=== PATIENT | female | born 1955 | race Caucasian/White ===

== ENCOUNTER 2019-02-18 18:23 | Inpatient (IN) ==
--- NOTE | 2019-02-18 18:55 | Emergency Department Note ---
Disposition Clinical Impression: Hypokalemia, Chronic vomiting, Dehydration Disposition: Admitted As Inpatient Condition: Fair Time of Disposition: 22:11 Nausea/Vomiting/Diarrhea HPI - General Chief complaint: ED Nausea/Vomiting/Diarrhea Stated complaint: vomiting,diarrhea, dehydration Time Seen by Provider: 02/18/19 18:54 Source: patient Limitations: no limitations Nursing Notes Reviewed: Yes Vital Signs Reviewed: Yes - History of Present Illness HPI Narrative: Mrs. Love is a 63yo female with a history of CAD, hypertension, Aortic Stenosis, DM and C. Diff with confirmed resolution presenting with 5.5 months of intractable vomiting with a 80lb weight loss. Patient's daughter at bedside states that the patient is in need of a aortic valve repair along with CABG but is unable to do so because of the intractable n/v. Patient has seen [facility] and has planned follow-up including MRI, and consultation with [facility] pancreatic specialist in the next few weeks but is here today in hopes of expediting the w ork-up process. Patient has been placed on pancreatic enzyme supplements and various other meds without relief. Patient reports no abdominal pain but does relay some diarrhea without blood. Patient unable to keep anything down other than sips of liquids. Patient said been having constant nausea with vomiting. She has multiple episodes daily. She feels generalized weakness and fatigue. Patient is a, take by her daughter at this time, he states that overall she seemed significantly weak, difficult for her to get out of bed secondary to this. - Related Data Home Medications Medication Instructions Recorded Confirmed Carvedilol [Coreg] 3.125 mg PO BIDWM 09/27/18 10/29/18 Lactobacillus Combination No.8 1 cap ADDUCT DAILY 10/18/18 10/29/18 [Adult Probiotic] Omeprazole [PriLOSEC] 20 mg PO DAILY 02/18/19 02/18/19 RX: Promethazine HCl 50 mg PO BID PRN 02/18/19 02/18/19 Camilo Vásquez 5,000 Unit Capsule 15,000 units PO 02/18/19 Allergies Allergy/AdvReac Type Severity Reaction Status Date / Time alcohol AdvReac See Verified 02/18/19 20:44 Comments aspirin AdvReac See Verified 02/18/19 20:44 Comments caffeine AdvReac See Verified 02/18/19 20:44 Comments nicotine AdvReac See Verified 02/18/19 20:44 Comments All systems ED: reviewed and negative except as stated. Review of Systems: As Per HPI Constitutional: Denies: fever, chills Cardiovascular: Denies: chest pain, palpitations Respiratory: Denies: cough, dyspnea Gastrointestinal: Reports: nausea, vomiting, diarrhea. Denies: abdominal pain Genitourinary: Denies: urgency, dysuria Neurological: Reports: weakness. Denies: headache, numbness Endocrine: Reports: fatigue Past Medical History - Past Medical History Medical history: Reports: CHF, diabetes, hyperlipidemia, hypertension, valvular heart disease Surgical history: Reports: no surgical history Psychiatric history: Reports: no psych history - Social History Smoking Status: Never smoker Smokeless Tobacco Status: No Alcohol use: Reports: none Drug use: Reports: none Physical Exam - General Limitations: no limitations General appearance: alert, in no apparent distress - Head Head exam: atraumatic, normocephalic - Eye Eye exam: Present: PERRL, EOMI. Absent: scleral icterus - ENT ENT exam: mucous membranes dry - Neck Neck exam: Present: normal inspection - Chest Chest inspection: Present: symmetric chest wall rise - Respiratory Respiratory exam: Present: normal lung sounds bilaterally - Cardiovascular Cardiovascular exam: Present: regular rate, normal rhythm, systolic murmur - Abdominal Exam Abdominal exam: Present: soft, Non-Tender. Absent: distention, guarding, rebound - Extremities Exam Extremities exam: Present: normal inspection, normal capillary refill - Expanded Lower Extremity Exam Neurovascular/Tendon exam: Absent: motor deficit, sensory deficit, tendon deficit - Neurological Exam Neurological exam: Present: alert, oriented X3 - Psychiatric Psychiatric exam: Present: normal affect, normal mood - Skin Skin exam: Present: warm, dry, intact, pallor. Absent: diaphoresis Course Vital Signs Temperature 97.6 F 02/18/19 18:28 Pulse Rate 105 02/18/19 18:28 Respiratory Rate 18 02/18/19 18:28 Blood Pressure 114/66 02/18/19 18:28 O2 Sat by Pulse Oximetry 98 02/18/19 18:28 Temperature 97.6 F 02/18/19 18:28 Pulse Rate 90 02/18/19 20:53 Respiratory Rate 16 02/18/19 21:54 Blood Pressure 100/53 02/18/19 21:54 O2 Sat by Pulse Oximetry 98 02/18/19 20:53 Oxygen Delivery Oxygen Delivery Room Air Nausea/Vomiting/Diarrhea - [facility] Narrative Medical decision making narrative: Patient is a 63-year-old female with nausea, vomiting and diarrhea. Patient with known history of CAD, followed by Dr. Pires and August for concern and requiring aortic valve replacement as well as CABG, however patient has had intractable vomiting since this time with a total of 80 pound weight loss. She is also complaining of significant fatigue and weakness. Patient is normotensive, regular rate and rhythm. EKG shows scattered baseline but no QT prolongation at this time. Patient has been using Zofran at home without relief. On arrival, patient was given Zofran with out significant relief, therefore gave Phenergan and has had no vomiting episodes here in the ER. Laboratory work shows no leukocytosis, hemoglobin is stable, patient is hypokalemic and this will be replaced with IV potassium. Patient was given a liter of fluids while here in the ER. Patient's lipase is slightly elevated however has been more elevated in the past. We will hold off on further abdominal injury imaging as patient has no abdominal tenderness on my examination. Patient has severely elevated T bili however has no jaundice on my examination, feel this is most likely secondary to chronic etiology, does not appear acute. Patient will need to be admitted for dehydration, intractable vomiting and acute kidney injury as she does have elevated serum creatinine. Patient agrees with admission at this point in time. - Medical Records Medical records reviewed: Yes I reviewed the patient's medical records. - Lab Data Lab results reviewed: Yes I reviewed the patient's lab results. Result diagrams: 02/18/19 19:30 02/18/19 19:30 Lab Results 02/18/19 02/18/19 02/18/19 Range/Units 19:30 19:30 19:54 WBC 7.6 (4.3-11.1) K/mcL RBC 4.57 (3.82-4.97) M/mcL Hgb 14.3 D (11.5-15.4) g/dL Hct 41.6 (35.3-44.9) % MCV 91.0 (83.0-100.0) fL MCH 31.3 (28.0-33.3) pg MCHC 34.4 (31.6-35.5) g/dL RDW 13.4 (11.5-14.5) % Plt Count 189 (140-400) K/mcL MPV 11.1 (9.4-12.4) fL Immature Gran % 0.4 (0-4) % Seg Neutrophils % 76.1 % Lymphocytes % 11.5 % Monocytes % 8.0 % Eosinophils % 3.6 % Basophils % 0.4 % Neutrophils # 5.8 (1.6-8.9) K/mcL Lymphocytes # 0.9 (0.6-4.6) K/mcL Monocytes # 0.6 (0.0-1.3) K/mcL Eosinophils # 0.3 (0.0-0.6) K/mcL Basophils # 0.0 (0.0-0.2) K/mcL Sodium 133 L (136-145) mEq/L Potassium 2.4 L* (3.5-5.1) mEq/L Chloride 84 L (98-107) mEq/L Carbon Dioxide 35 H (23-29) mEq/L BUN 31 H (8-23) mg/dL Creatinine 1.76 H (0.60-1.20) mg/dL Est GFR ( Amer) 35 L (> 60) Est GFR (Non-Af Amer) 29 L (> 60) BUN/Creatinine Ratio 18 (6-26) Glucose 196 H (70-105) mg/dL Calculated Osmolality 288 (280-300) Lactic Acid (0.5-2.2) mmol/L Calcium 9.9 (8.6-10.3) mg/dL Magnesium 2.4 (1.6-2.6) mg/dL Total Bilirubin 2.2 H (0.3-1.0) mg/dL Direct Bilirubin 0.8 H (0.0-0.2) mg/dL Indirect Bilirubin 1.4 H (0.0-1.2) mg/dL AST 38 (13-39) Units/L ALT 17 (7-52) Units/L Alkaline Phosphatase 101 (34-104) Units/L Serum Total Protein 7.8 (6.4-8.9) g/dL Albumin 3.8 (3.5-5.7) g/dL Globulin 4.0 H (2.4-3.5) g/dL Albumin/Globulin Ratio 1.0 L (1.1-2.2) Lipase 96 H (11-82) Units/L Urine Color Dark Yellow (Yellow) Urine Clarity Cloudy A (Clear) Urine pH 5.5 (5.0-8.0) pH Units Ur Specific [place] 1.023 (1.010-1.025) Urine Protein 30 H (Neg-Trace) mg/dL Urine Glucose (UA) Normal (Normal) mg/dL Urine Ketones Negative (Negative) mg/dL Urine Blood Negative (Negative) Urine Nitrite Negative (Negative) Urine Bilirubin Small H (Negative) Urine Urobilinogen Normal (Normal) mg/dL Ur Leukocyte Esterase Small H (Negative) Urine Microscopic RBC 5-15 H (0-3) per hpf Urine Microscopic WBC 15-30 H (0-3) per hpf Ur Squamous Epith Cells Many H (None-Few) per lpf Urine Bacteria Moderate H (None-Few) per hpf Hyaline Casts Many H (None-Few) per lpf 02/18/19 Range/Units 20:15 WBC (4.3-11.1) K/mcL RBC (3.82-4.97) M/mcL Hgb (11.5-15.4) g/dL Hct (35.3-44.9) % MCV (83.0-100.0) fL MCH (28.0-33.3) pg MCHC (31.6-35.5) g/dL RDW (11.5-14.5) % Plt Count (140-400) K/mcL MPV (9.4-12.4) fL Immature Gran % (0-4) % Seg Neutrophils % % Lymphocytes % % Monocytes % % Eosinophils % % Basophils % % Neutrophils # (1.6-8.9) K/mcL Lymphocytes # (0.6-4.6) K/mcL Monocytes # (0.0-1.3) K/mcL Eosinophils # (0.0-0.6) K/mcL Basophils # (0.0-0.2) K/mcL Sodium (136-145) mEq/L Potassium (3.5-5.1) mEq/L Chloride (98-107) mEq/L Carbon Dioxide (23-29) mEq/L BUN (8-23) mg/dL Creatinine (0.60-1.20) mg/dL Est GFR ( Amer) (> 60) Est GFR (Non-Af Amer) (> 60) BUN/Creatinine Ratio (6-26) Glucose (70-105) mg/dL Calculated Osmolality (280-300) Lactic Acid 2.0 (0.5-2.2) mmol/L Calcium (8.6-10.3) mg/dL Magnesium (1.6-2.6) mg/dL Total Bilirubin (0.3-1.0) mg/dL Direct Bilirubin (0.0-0.2) mg/dL Indirect Bilirubin (0.0-1.2) mg/dL AST (13-39) Units/L ALT (7-52) Units/L Alkaline Phosphatase (34-104) Units/L Serum Total Protein (6.4-8.9) g/dL Albumin (3.5-5.7) g/dL Globulin (2.4-3.5) g/dL Albumin/Globulin Ratio (1.1-2.2) Lipase (11-82) Units/L Urine Color (Yellow) Urine Clarity (Clear) Urine pH (5.0-8.0) pH Units Ur Specific [place] (1.010-1.025) Urine Protein (Neg-Trace) mg/dL Urine Glucose (UA) (Normal) mg/dL Urine Ketones (Negative) mg/dL Urine Blood (Negative) Urine Nitrite (Negative) Urine Bilirubin (Negative) Urine Urobilinogen (Normal) mg/dL Ur Leukocyte Esterase (Negative) Urine Microscopic RBC (0-3) per hpf Urine Microscopic WBC (0-3) per hpf Ur Squamous Epith Cells (None-Few) per lpf Urine Bacteria (None-Few) per hpf Hyaline Casts (None-Few) per lpf - EKG Data EKG attestation: Yes I reviewed and interpreted this EKG. EKG results narrative: EKG performed at 1938 with ventricular rate of 94, regular rhythm, no axis, no ST segment elevation, depression, patient does have scattered baseline
[2019-02-18] MEDS ORDERED: Ondansetron 4 MG/2 ML VIAL IVP ONE (19:16)
[2019-02-18] MEDS ORDERED: 0.9 % Sodium Chloride 1,000 ML IVC ONE (19:32)
[2019-02-18 19:43] LABS: Basophils % 0.4 %; Eosinophils # 0.3 K/mcL (0.0-0.6); Eosinophils % 3.6 %; Hematocrit 41.6 % (35.3-44.9); Hemoglobin 14.3 g/dL (11.5-15.4); Immature Granulocytes % 0.4 % (0-4); Lymphocytes # 0.9 K/mcL (0.6-4.6); Lymphocytes % 11.5 %; Mean Corpuscular HGB Conc 34.4 g/dL (31.6-35.5); Mean Corpuscular Hemoglobin 31.3 pg (28.0-33.3); Mean Platelet Volume 11.1 fL (9.4-12.4); Monocytes # 0.6 K/mcL (0.0-1.3); Neutrophils # 5.8 K/mcL (1.6-8.9); Platelet Count 189 K/mcL (140-400); Red Blood Count 4.57 M/mcL (3.82-4.97); Red Cell Distribution Width 13.4 % (11.5-14.5); Segmented Neutrophils % 76.1 %; White Blood Count 7.6 K/mcL (4.3-11.1)
[2019-02-18 20:07] LABS: Albumin 3.8 g/dL (3.5-5.7); Bilirubin,Direct 0.8 mg/dL (0.0-0.2); Bilirubin,Indirect 1.4 mg/dL (0.0-1.2); Bilirubin,Total 2.2 mg/dL (0.3-1.0); Calcium 9.9 mg/dL (8.6-10.3); Potassium 2.4 mEq/L (3.5-5.1); Total Protein 7.8 g/dL (6.4-8.9)
[2019-02-18 20:08] LABS: Bilirubin,Urine Small (Negative); Blood,Urine Negative (Negative); Clarity,Urine Cloudy (Clear); Color,Urine Dark Yellow (Yellow); Glucose,Urine (UA) Normal (Normal); Ketones,Urine Negative (Negative); Leukocyte Esterase,Urine Small (Negative); Nitrite,Urine Negative (Negative); PH,Urine 5.5 pH Units (5.0-8.0); Protein,Urine 30 mg/dL (Neg-Trace); Specific Gravity,Urine 1.023 (1.010-1.025); Urobilinogen,Urine Normal (Normal)
[2019-02-18] MEDS ORDERED: Potassium Phosphate 44 MEQ in 0.9 % Sodium Chloride 250 ML IVPB ONE (20:15)
[2019-02-18 20:16] LABS: Squamous Epithelial Cell,Urine Many per lpf (None-Few); WBC,Urine 15-30 per hpf (0-3)
[2019-02-18] MEDS ORDERED: *HR* Promethazine 25 MG/ML VIAL IVP ONE (20:17)
--- NOTE | 2019-02-18 20:21 | Emergency Department Note ---
Disposition Clinical Impression: Dehydration, Hypokalemia, Chronic vomiting Disposition: Admitted As Inpatient Referrals: Pato Maher MD [Primary Care Provider] - Forms: ED Satisfaction Letter Time of Disposition: 20:21 General Adult HPI - General Chief complaint: ED Nausea/Vomiting/Diarrhea Stated complaint: vomiting,diarrhea, dehydration Time Seen by Provider: 02/18/19 18:54 Source: patient Limitations: no limitations - History of Present Illness Pain Scale: 0 - Related Data Home Medications Medication Instructions Recorded Confirmed Atorvastatin [Lipitor] 40 mg PO HS 08/31/18 10/29/18 Furosemide [Lasix] 20 mg PO DAILY 08/31/18 10/29/18 Carvedilol [Coreg] 3.125 mg PO BIDWM 09/27/18 10/29/18 Lactobacillus Combination No.8 1 cap ADDUCT DAILY 10/18/18 10/29/18 [Adult Probiotic] Melatonin 5 mg PO HS 10/18/18 10/29/18 Allergies Allergy/AdvReac Type Severity Reaction Status Date / Time alcohol AdvReac See Verified 02/18/19 18:32 Comments aspirin AdvReac See Verified 02/18/19 18:32 Comments caffeine AdvReac See Verified 02/18/19 18:32 Comments nicotine AdvReac See Verified 02/18/19 18:32 Comments Constitutional: Denies: fever, chills Cardiovascular: Denies: chest pain, palpitations Respiratory: Denies: cough, dyspnea Gastrointestinal: Reports: nausea, vomiting, diarrhea. Denies: abdominal pain Genitourinary: Denies: urgency, dysuria Neurological: Reports: weakness. Denies: headache, numbness Past Medical History - Past Medical History Medical history: Reports: CHF, diabetes, hyperlipidemia, hypertension, valvular heart disease Surgical history: Reports: no surgical history Psychiatric history: Reports: no psych history - Social History Smoking Status: Never smoker Smokeless Tobacco Status: No Alcohol use: Reports: none Drug use: Reports: none Physical Exam - General Limitations: no limitations General appearance: alert, in no apparent distress Course Vital Signs Temperature 97.6 F 02/18/19 18:28 Pulse Rate 105 02/18/19 18:28 Respiratory Rate 18 02/18/19 18:28 Blood Pressure 114/66 02/18/19 18:28 O2 Sat by Pulse Oximetry 98 02/18/19 18:28 Temperature 97.6 F 02/18/19 18:28 Pulse Rate 105 02/18/19 18:28 Respiratory Rate 18 02/18/19 18:28 Blood Pressure 114/66 02/18/19 18:28 O2 Sat by Pulse Oximetry 98 02/18/19 18:28 Oxygen Delivery Oxygen Delivery Room Air Medical Decision Making - Lab Data Result diagrams: 02/18/19 19:30 02/18/19 19:30 Lab Results 02/18/19 02/18/19 02/18/19 Range/Units 19:30 19:30 19:54 WBC 7.6 (4.3-11.1) K/mcL RBC 4.57 (3.82-4.97) M/mcL Hgb 14.3 D (11.5-15.4) g/dL Hct 41.6 (35.3-44.9) % MCV 91.0 (83.0-100.0) fL MCH 31.3 (28.0-33.3) pg MCHC 34.4 (31.6-35.5) g/dL RDW 13.4 (11.5-14.5) % Plt Count 189 (140-400) K/mcL MPV 11.1 (9.4-12.4) fL Immature Gran % 0.4 (0-4) % Seg Neutrophils % 76.1 % Lymphocytes % 11.5 % Monocytes % 8.0 % Eosinophils % 3.6 % Basophils % 0.4 % Neutrophils # 5.8 (1.6-8.9) K/mcL Lymphocytes # 0.9 (0.6-4.6) K/mcL Monocytes # 0.6 (0.0-1.3) K/mcL Eosinophils # 0.3 (0.0-0.6) K/mcL Basophils # 0.0 (0.0-0.2) K/mcL Sodium 133 L (136-145) mEq/L Potassium 2.4 L* (3.5-5.1) mEq/L Chloride 84 L (98-107) mEq/L Carbon Dioxide 35 H (23-29) mEq/L BUN 31 H (8-23) mg/dL Creatinine 1.76 H (0.60-1.20) mg/dL Est GFR ( Amer) 35 L (> 60) Est GFR (Non-Af Amer) 29 L (> 60) BUN/Creatinine Ratio 18 (6-26) Glucose 196 H (70-105) mg/dL Calculated Osmolality 288 (280-300) Calcium 9.9 (8.6-10.3) mg/dL Total Bilirubin 2.2 H (0.3-1.0) mg/dL Direct Bilirubin 0.8 H (0.0-0.2) mg/dL Indirect Bilirubin 1.4 H (0.0-1.2) mg/dL AST 38 (13-39) Units/L ALT 17 (7-52) Units/L Alkaline Phosphatase 101 (34-104) Units/L Serum Total Protein 7.8 (6.4-8.9) g/dL Albumin 3.8 (3.5-5.7) g/dL Globulin 4.0 H (2.4-3.5) g/dL Albumin/Globulin Ratio 1.0 L (1.1-2.2) Lipase 96 H (11-82) Units/L Urine Color Dark Yellow (Yellow) Urine Clarity Cloudy A (Clear) Urine pH 5.5 (5.0-8.0) pH Units Ur Specific [place] 1.023 (1.010-1.025) Urine Protein 30 H (Neg-Trace) mg/dL Urine Glucose (UA) Normal (Normal) mg/dL Urine Ketones Negative (Negative) mg/dL Urine Blood Negative (Negative) Urine Nitrite Negative (Negative) Urine Bilirubin Small H (Negative) Urine Urobilinogen Normal (Normal) mg/dL Ur Leukocyte Esterase Small H (Negative) Attestation Statement - Attestation Attestation: I examined this patient and my medical decision-making was reviewed with the Resident Physician. I agree with the documented findings, disposition and treatment plan as described except to the extent set forth below. this is a 63yo female with a history of Aortic Stenosis, DM and C. Diff with confirmed resolution presenting with 5.5 months of intractable vomiting with a 80lb weight loss. Patient's daughter at bedside states that the patient is in need of a aortic valve repair along with CABG but is unable to do so because of the intractable n/v. She is scheduled to have an MRI of the abdomen and pelvis in 2 days. She is to follow-up with her pancreatic specialist in [place] after her MRI and a few days. She presented to the ER today because her symptoms seem to be worsening. They were unclear as to why she is been having this persistent nausea and vomiting. Hence why she is scheduled to see a pancreatic specialist. Her labs today confirms that she is hypokalemic dehydration. She is elevations of her BUN/creatinine and a specifically low potassium at 2.4. We have ordered IV fluids, antiemetics and potassium replacement. We will admit her at this time for fluid resuscitation and electrolyte correction. EKG reviewed with the resident. I agree with documentation and interpretation
[2019-02-18 20:35] LABS: Hyaline Casts,Urine Many per lpf (None-Few)
[2019-02-18 20:36] LABS: Bacteria,Urine Moderate per hpf (None-Few)
[2019-02-18 20:58] LABS: Magnesium 2.4 mg/dL (1.6-2.6)
--- NOTE | 2019-02-18 22:00 | Internal Med History&Physical ---
Date of Encounter: 02/18/19 Time of Encounter: 21:53 Internal Medicine - H&P: HPI Chief complaint: Nausea, vomiting Admitted From: Emergency Dept Plans for Post Hospital Care: Home History of present illness: Ms. Love is a 63 year old female diabetes, CAD, hypertension, aortic stenosis who presented to [facility] complaining of vomiting. In the ED initial vitals were 97.6F, HR 105, RR 18, BP 114/66, 98% SpO2 on room air. CBC unremarkable. Sodium 133, potassium 2.4, creatinine 1.76, lactic acid 2.0, magnesium 2.4, total bilirubin 2.2, direct bilirubin 0.8, indirect bilirubin 1.4, AST 38, ALT 17, alkaline phosphatase 101, lipase 96. Urinalysis showing leukocyte esterase, WBC 15 to 30. -In the ED the patient was given potassium phosphate, Phenergan, Zofran, 1L IVF. Past Med Surg Social Fam HX - Past Medical History Medical history: CHF, diabetes, hyperlipidemia, hypertension, valvular heart disease Additional medical history: BORDERLINE DIABETES. 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" THAT MAKES ME HIGH RISK FOR BLEEDING Psychiatric history: no psych history - Past Surgical History Surgical History: no surgical history - Social History Smoking Status: Never smoker Smokeless Tobacco Status: No Alcohol use: none Drug use: none Internal Medicine - H&P: Meds Carvedilol [Coreg] 3.125 mg PO BIDWM 09/27/18 [History] Lactobacillus Combination No.8 [Adult Probiotic] 1 cap ADDUCT DAILY 10/18/18 [History] Omeprazole [PriLOSEC] 20 mg PO DAILY 02/18/19 [History] Promethazine HCl 50 mg PO BID PRN 02/18/19 [History] Zenpep Dr 5,000 Unit Capsule 15,000 units PO 02/18/19 [History] Allergy/AdvReac Type Severity Reaction Status Date / Time alcohol AdvReac See Verified 02/18/19 20:44 Comments aspirin AdvReac See Verified 02/18/19 20:44 Comments caffeine AdvReac See Verified 02/18/19 20:44 Comments nicotine AdvReac See Verified 02/18/19 20:44 Comments All Systems PM: A 10-system review of systems was performed and is negative for pertinent findings except as documented above in the HPI. - Constitutional Vitals: Temp Pulse Resp BP Pulse Ox 97.6 F 90 14 106/44 98 02/18/19 18:28 02/18/19 20:53 02/18/19 20:53 02/18/19 20:53 02/18/19 20:53 Internal Med - H&P Results - Labs CBC & Chem 7: 02/18/19 19:30 02/18/19 19:30 Labs: Short CBC 02/18/19 Range/Units 19:30 WBC 7.6 (4.3-11.1) K/mcL Hgb 14.3 D (11.5-15.4) g/dL Hct 41.6 (35.3-44.9) % Plt Count 189 (140-400) K/mcL Neutrophils # 5.8 (1.6-8.9) K/mcL BMP 02/18/19 19:30 Sodium 133 L Potassium 2.4 L* Chloride 84 L Carbon Dioxide 35 H BUN 31 H Creatinine 1.76 H Glucose 196 H Calcium 9.9 Liver Function 02/18/19 Range/Units 19:30 Total Bilirubin 2.2 H (0.3-1.0) mg/dL Direct Bilirubin 0.8 H (0.0-0.2) mg/dL AST 38 (13-39) Units/L ALT 17 (7-52) Units/L Alkaline Phosphatase 101 (34-104) Units/L Albumin 3.8 (3.5-5.7) g/dL Urine 02/18/19 Range/Units 19:54 Urine Color Dark Yellow (Yellow) Urine Clarity Cloudy A (Clear) Urine pH 5.5 (5.0-8.0) pH Units Ur Specific [place] 1.023 (1.010-1.025) Urine Protein 30 H (Neg-Trace) mg/dL Urine Glucose (UA) Normal (Normal) mg/dL - Time Spent With Patient Total time spent is greater than 50% in coordination of care (as documented) at patient's floor/unit and/or counseling patient:
[2019-02-18] MEDS ORDERED: Dextrose Gel 15 GM/37.5 ML TUBE PO PRN ×2 (22:42)
[2019-02-18] MEDS ORDERED: Ondansetron ODT 4 MG TAB.RAPDIS SL PRN (22:42)
[2019-02-18] MEDS ORDERED: Naloxone 0.4 MG/ML INJ IVP PRN (22:42)
[2019-02-18] MEDS ORDERED: D5% in Water 1,000 ML IVC PRN (22:42)
[2019-02-18] MEDS ORDERED: *HR* Dextrose 50 % in Water (Syg) 50 ML SYRINGE IVP PRN (22:42)
--- NOTE | 2019-02-18 22:58 | Internal Med History&Physical ---
Date of Encounter: 02/19/19 Time of Encounter: 22:51 Internal Medicine - H&P: HPI Chief complaint: nausea and vomtiing unable to keep anthing down. Admitted From: Home Plans for Post Hospital Care: Home History of present illness: Ms. Love is a 63 year old female with past medical history of severe CAD with recommended CABG but unable to undergo, severe aortic stenosis unable to repir due to uncontrolled CAD presented to the ED for severe nausea and vomiting. [id number] encounter at 10:20pm. Patient reported that the nausea and vomiting has been occurring at least 3 months, progressively worsening especially with food, no alleviating factor no association of headache, fever, chills, shortness of breath, chest pain, abdominal pain. Patient reported diarrhea and constant watery at least 8 times a day. Patient reported history of C. difficile that was recently treated only had a GI PCR done as outpatient that was negative for PCR. Patient reports nausea and vomiting has become so severe that she is unable to tolerate any oral intake including water thus came to the ED today. Patient denied history of recent colonoscopy or EGD done before. last colonoscopy done and she was 50 was normal. Personally reviewed patient's past medical, surgical, social and family history. Code status is full. No family history of colon cancer, or similar symptoms. Patient denied smoking, drinking or drugs. Patient reported multiple medication changes where she would try different enzymes to help alleviate the symptoms. Past Med Surg Social Fam HX - Past Medical History Medical history: CHF, diabetes, hyperlipidemia, hypertension, valvular heart disease Additional medical history: BORDERLINE DIABETES. 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" THAT MAKES ME HIGH RISK FOR BLEEDING Psychiatric history: no psych history - Past Surgical History Surgical History: no surgical history - Social History Smoking Status: Never smoker Smokeless Tobacco Status: No Alcohol use: none Drug use: none Internal Medicine - H&P: Meds Carvedilol [Coreg] 3.125 mg PO BIDWM 09/27/18 [History] Lactobacillus Combination No.8 [Adult Probiotic] 1 cap ADDUCT DAILY 10/18/18 [History] Omeprazole [PriLOSEC] 20 mg PO DAILY 02/18/19 [History] Promethazine HCl 50 mg PO BID PRN 02/18/19 [History] Zenpep Dr 5,000 Unit Capsule 15,000 units PO 02/18/19 [History] Allergy/AdvReac Type Severity Reaction Status Date / Time alcohol AdvReac See Verified 02/18/19 20:44 Comments aspirin AdvReac See Verified 02/18/19 20:44 Comments caffeine AdvReac See Verified 02/18/19 20:44 Comments nicotine AdvReac See Verified 02/18/19 20:44 Comments All Systems PM: A 10-system review of systems was performed and is negative for pertinent findings except as documented above in the HPI. Review of systems: General: No unintentional weightloss, No fever Head: No headahce, No injury. Ears: No discharge, No earache Eyes: No drainage, No eye pain Mouth and Throat: No new ulcers, No pain Nose and Sinus: No new congestion, No pain, Respiratory: No cough, No sputum production, No dyspnea Cardiovascular: No chest pain, No palpitations. Gastrointestinal: + nausea, + vomiting. +diarrhea Genital Tract: No discharge, No pain Urinary Tract: No dysuria, No discharge. MSK: No new/worsening joint pain, No new/worsening muscle ache. Endocrine: No cold intolerance, No polyuria Psychological: No suicidal, No homocidal ideation. - Constitutional Vitals: Temp Pulse Resp BP Pulse Ox 97.5 F L 88 16 99/67 98 02/18/19 22:11 02/18/19 22:11 02/18/19 22:11 02/18/19 22:11 02/18/19 22:11 Exam: General Appearance: Appearing as age, well-nourished in mild acute distress. Head: Atraumatic normocephalic Skin: Normal texture, delayed pale skin turgor, warm, dry. dry mucus membranes Eyes: Conjunctivae not pale with no erythema, drainage, or ulcers. Anicteric. Neck: No Lymphadenopathy in the anterior/posterior cervical chain. No thyromegaly, masses or ulcers. Trachea midline. Heart: RRR, no murmurs. Capillary refill 6 seconds Lungs: No accessory muscle usage, lungs clear to auscultation bilaterally, no wheezes or crackles. Extremities: No pitting edema, No clubbing, No cyanosis. Abdomen: Non-distended, normoactive bowel sounds. non-tender to palpation, no hepatomegally. No guarding. Neuro: AOx3 with no new sensory loss or focal deficits. MSK: Strength 5/5 Upper extremity equal bilaterally. Strength 5/5 Lower extremity equal bilaterally Internal Med - H&P Results - Labs CBC & Chem 7: 02/18/19 19:30 02/18/19 19:30 Labs: Short CBC 02/18/19 Range/Units 19:30 WBC 7.6 (4.3-11.1) K/mcL Hgb 14.3 D (11.5-15.4) g/dL Hct 41.6 (35.3-44.9) % Plt Count 189 (140-400) K/mcL Neutrophils # 5.8 (1.6-8.9) K/mcL BMP 02/18/19 19:30 Sodium 133 L Potassium 2.4 L* Chloride 84 L Carbon Dioxide 35 H BUN 31 H Creatinine 1.76 H Glucose 196 H Calcium 9.9 Liver Function 02/18/19 Range/Units 19:30 Total Bilirubin 2.2 H (0.3-1.0) mg/dL Direct Bilirubin 0.8 H (0.0-0.2) mg/dL AST 38 (13-39) Units/L ALT 17 (7-52) Units/L Alkaline Phosphatase 101 (34-104) Units/L Albumin 3.8 (3.5-5.7) g/dL Urine 02/18/19 Range/Units 19:54 Urine Color Dark Yellow (Yellow) Urine Clarity Cloudy A (Clear) Urine pH 5.5 (5.0-8.0) pH Units Ur Specific [place] 1.023 (1.010-1.025) Urine Protein 30 H (Neg-Trace) mg/dL Urine Glucose (UA) Normal (Normal) mg/dL - Summary of Assessment and Plan Summary of Assessment and Plan: 1. Intractable nausea and vomiting: Etiology unclear EKG reviewed and interpretation is NSR with LVH howevere not a good ekg. Repeat in the AM and trend troponin. Failed outpatient therapy of Zofran and Phenergan. Keep nothing by mouth. Zofran for nausea IV. GI consultation. 2. Chronic diarrhea watery: Etiology unclear Stool tests ordered, HIV. Ultrasound abdomen to check for gallbladder disease GI consultation. 3. Severe hypokalemia: Replaced 4. Mixed NAG metabolic acidosis with metabolic alkalosis: 2/2 Vomiting and ABIGAIL ABG in the AM. Continue IVF and therapy. DVT prophylaxis: heparin Dispo: likely < 2 day stay. - Time Spent With Patient Total time spent is greater than 36 minutes 50% in coordination of care (as documented) at patient's floor/unit and/or counseling patient: Greater than 35 minutes
[2019-02-18 23:50] LABS: Estimated Average Glucose 131 mg/dl
[2019-02-19] MEDS: 0.9 % Sodium Chloride w KCl 20 MEQ/1,000 ML MLS IVC SCH ×2 (01:30→16:55)
[2019-02-19 05:01] LABS: ABG Base Excess 11 mEq/L (-2 to 3); ABG HCO3 36 mEq/L (21-27); ABG Oxygen Saturation 96 % (95-98); ABG PCO2 48 mmHg (35-45); ABG PH 7.48 pH Units (7.32-7.45); ABG PO2 77 mmHg (85-104); ABG TCO2 37 mEq/L (20-26)
[2019-02-19] MEDS: *HR* Heparin 5,000 UNIT/ML VIAL SQ SCH ×3 (05:14→20:53)
[2019-02-19 05:21] LABS: Basophils % 0.8 %; Eosinophils # 0.4 K/mcL (0.0-0.6); Eosinophils % 9.7 %; Hematocrit 34.9 % (35.3-44.9); Lymphocytes % 27.8 %; Mean Corpuscular HGB Conc 33.8 g/dL (31.6-35.5); Mean Corpuscular Hemoglobin 31.3 pg (28.0-33.3); Mean Corpuscular Volume 92.6 fL (83.0-100.0); Mean Platelet Volume 10.9 fL (9.4-12.4); Monocytes # 0.3 K/mcL (0.0-1.3); Monocytes % 7.3 %; Platelet Count 116 K/mcL (140-400); Red Blood Count 3.77 M/mcL (3.82-4.97); Red Cell Distribution Width 13.5 % (11.5-14.5); Segmented Neutrophils % 54.4 %
[2019-02-19 05:24] LABS: Hemoglobin 11.8 g/dL (11.5-15.4); White Blood Count 3.7 K/mcL (4.3-11.1)
[2019-02-19 05:40] LABS: Albumin 3.1 g/dL (3.5-5.7); Bilirubin,Total 1.4 mg/dL (0.3-1.0); Calcium 8.2 mg/dL (8.6-10.3); Chol/HDL Ratio 7.2 (0-4.9); Globulin 3.1 g/dL (2.4-3.5); Magnesium 2.1 mg/dL (1.6-2.6); Phosphorous 6.1 mg/dL (2.7-4.5); Potassium 2.6 mEq/L (3.5-5.1); Total Protein 6.2 g/dL (6.4-8.9)
--- NOTE | 2019-02-19 07:29 | Internal Med Progress Note ---
Hospitalist Progress Note - Encounter Date of Encounter: 02/19/19 Time of Encounter: 07:28 - Subjective Interval History: Patient seen and examined this morning at bedside. No acute overnight events. Denies any chest pain or difficulty breathing. Has nausea and did not have any episodes of vomiting. Denies any abdominal pain. - Exam Vitals: Temp Pulse Resp BP Pulse Ox 97.6 F 73 16 95/60 97 02/19/19 03:51 02/19/19 03:51 02/19/19 03:51 02/19/19 03:51 02/19/19 03:51 Exam: General: In no acute distress. Respiratory exam: CTAB. no accessory muscle use, rales, rhonchi, wheezes Cardiovascular exam: RRR, +S1, +S2. harsh ejection systolic murmur GI/Abdominal exam: Non-tender, Non-distended, normal bowel sounds, soft, no peritoneal signs. Extremities exam: trace pedal edema, pulses palpable in b/l lower extremities. no calf tenderness Neurological exam: CN II-XII intact, AO X3, no focal deficits. Skin exam: No skin rash - Summary of Assessment and Plan Summary of Assessment and Plan: Assessment Acute Intractable nausea, vomiting and diarrhea hypokalemia partially compensated metabolic alkalosis, respiratory acidosis, metabolic acidosis ABIGAIL elevated troponin elevated lipase Chronic severe CAD Severe DM HTN Diastolic CHF. Plan - Intractable nausea and vomiting. Etiology unclear. Possible gastroperesis however a1c 6.2. GI consulted for further input. - Has chronic diarrhea. previously treated for Cdiff with resolution on testing - repleate potassium - EKG with LVH with mild depression, likely strain pattern seen on previous EKG. without chest pain. Known severe CAD. troponin flat. Was told need N/V/D resolved before CABG and . - Has mixed acid base disorder likely related to chronic diarrhea, Vomiting and dehydration. c/w ivf. Will give 500 cc bolus given low BP. Will be cautious given h/o CHF. HIV test negative. awaiting stool studies. She was told she has pancreatic insufficiency which could explain diarrhea. stool elastase was low and calprotectin negative. Is not on pancreatic enzyme supplement. Will discuss with ID about starting. With severe anesthesia would be with high risk. Will consider gastric emptying study after gi evaluation. Has not had EGD/Colonsocopy in past. - heparin for dvt ppx - Time Spent with Patient Total time spent is greater than 50% in coordination of care (as documented) at patient's floor/unit and/or counseling patient: Internal Medicine: Result - Labs CBC & Chem 7: 02/19/19 05:05 02/19/19 05:05 Labs: Short CBC 02/18/19 02/19/19 Range/Units 19:30 05:05 WBC 7.6 3.7 L D (4.3-11.1) K/mcL Hgb 14.3 D 11.8 D (11.5-15.4) g/dL Hct 41.6 34.9 L (35.3-44.9) % Plt Count 189 116 L (140-400) K/mcL Neutrophils # 5.8 2.0 (1.6-8.9) K/mcL BMP 02/18/19 02/19/19 19:30 05:05 Sodium 133 L 136 Potassium 2.4 L* 2.6 L Chloride 84 L 92 L Carbon Dioxide 35 H 34 H BUN 31 H 29 H Creatinine 1.76 H 1.53 H Glucose 196 H 120 H Calcium 9.9 8.2 L Cardiac Enzymes 02/18/19 02/19/19 Range/Units 23:27 05:05 Troponin I 0.09 H* 0.09 H* (< 0.04) ng/mL Liver Function 02/18/19 02/19/19 Range/Units 19:30 05:05 Total Bilirubin 2.2 H 1.4 H (0.3-1.0) mg/dL Direct Bilirubin 0.8 H (0.0-0.2) mg/dL AST 38 30 (13-39) Units/L ALT 17 13 (7-52) Units/L Alkaline Phosphatase 101 78 (34-104) Units/L Albumin 3.8 3.1 L (3.5-5.7) g/dL Urine 02/18/19 Range/Units 19:54 Urine Color Dark Yellow (Yellow) Urine Clarity Cloudy A (Clear) Urine pH 5.5 (5.0-8.0) pH Units Ur Specific [place] 1.023 (1.010-1.025) Urine Protein 30 H (Neg-Trace) mg/dL Urine Glucose (UA) Normal (Normal) mg/dL - ABG Interpretation ABG results: ABG ABG pH 7.48 pH Units (7.32-7.45) H 02/19/19 04:57 ABG pCO2 48 mmHg (35-45) H 02/19/19 04:57 ABG pO2 77 mmHg (85-104) L 02/19/19 04:57 ABG O2 Saturation 96 % (95-98) 02/19/19 04:57 Consult Discharge Plan - Plan Referrals: Pato Maher MD [Primary Care Provider] - (Appointment has been requested.)
[2019-02-19] MEDS ORDERED: 0.9 % Sodium Chloride 500 ML IV ONE ×2 (08:23→11:36)
[2019-02-19] MEDS ORDERED: 0.9 % Sodium Chloride 500 ML ONE (08:25)
[2019-02-19] MEDS: Lactobacillus 1 EACH CAP.SPRINK PO SCH ×2 (08:30→19:21)
[2019-02-19 08:55] LABS: Bilirubin,Urine Small (Negative); Blood,Urine Negative (Negative); Clarity,Urine Cloudy (Clear); Color,Urine Dark Yellow (Yellow); Glucose,Urine (UA) Normal (Normal); Ketones,Urine Negative (Negative); Leukocyte Esterase,Urine Trace (Negative); Nitrite,Urine Negative (Negative); Protein,Urine Trace mg/dL (Neg-Trace); Specific Gravity,Urine 1.024 (1.010-1.025); Urobilinogen,Urine Normal (Normal)
[2019-02-19 08:57] LABS: Bacteria,Urine None Seen per hpf (None-Few); Hyaline Casts,Urine Moderate per lpf (None-Few); Squamous Epithelial Cell,Urine Many per lpf (None-Few)
--- NOTE | 2019-02-19 10:33 | Gastroenterology Consult Note ---
Date of Encounter: 02/19/19 Time of Encounter: 10:32 - Assessment and plan (1) Nausea and vomiting Current Visit: Yes Status: Acute Assessment and plan: Ms. Love presented to the ED complaining of nausea and emesis ongoing since September 2018 Has follow outpatient with Dr. Ortiz who has diagnosed her with exocrine pancreatic insufficiency given decreased pancreatic elastase She additionally has chronic elevated lipase Denies any abdominal pain Has been complaining of watery 3-4 episodes of diarrhea daily She has been worked up for celiac disease which was negative On 12/04/18 had C. difficile which has been treated Nausea and emesis occurs with any solids or liquids Has been compliant with her pancreatic replacement enzymes but continues to have symptoms Has lost over 80 pounds unintentionally the past 6 months due to poor oral intake No previous abdominal imaging Appears colonoscopy 5 years ago which reportedly was normal Previous HIV serology was negative No previous EGD Viral hepatitis panel ordered Would recommend abdominal imaging due to no previous imaging and weight loss as well as chronic emesis and diarrhea MRCP ordered to evaluate the pancreas, concerning for mas NPO after midnight for EUS in the morning Continue to replete electrolytes Further recommendations by Dr. Ponce, thank you for involving GI in her care Qualifiers: Vomiting type: unspecified Vomiting Intractability: non-intractable Qualified Code(s): R11.2 - Nausea with vomiting, unspecified - Time Spent With Patient Total time spent is greater than 50% in coordination of care (as documented) at patient's floor/unit and/or counseling patient: GI History of Present Illness - Data of Consult Requesting Physician: Ebony Myrick MD - Consult Narrative History of present illness: Ms. Love is a 63 year old female with past medical history CHF, diabetes, hyperlipidemia, hypertension, severe aortic stenosis who presented to the ED complaining of nausea and emesis since September 2018. Reports 3-4 episodes of emesis after and taking anything including fluids. Denies any dysphagia. Reports the emesis appears undigested food denies any hematemesis. Additionally complaining of loose watery stool. She was recently diagnosed with C. difficile on 12/04/18 reports at that time had he to 10 episodes of loose stools since her treatment of the infection stools decreased continue to occur after each meal. Denies hematochezia or melena. Reports she had a colonoscopy 5 years ago and was due for another one age of 64. She denies any previous EGDs. Does report following outpatient with Dr. Ortiz who has diagnosed her with exocrine pancreatic insufficiency and has started pancreatic replacement enzymes. She versus she continues to take her medications but her nausea, emesis and diarrhea has not resolved. 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 She reports her nausea and vomiting symptoms started after starting the new medication for her cardiac symptoms although has been off that medication for months continues to have the symptoms. She is denying any fever, chills, chest pain or abdominal pain. Past Med Surg Social Fam HX - Past Medical History Medical history: CHF, diabetes, hyperlipidemia, hypertension, valvular heart disease, other Additional medical history: aortic stenosis Psychiatric history: no psych history - Past Surgical History Surgical History: no surgical history - Social History Smoking Status: Never smoker Smokeless Tobacco Status: No Alcohol use: none Drug use: none - Gastrointestinal Gastrointestinal: Present: diarrhea, nausea, vomiting. Absent: abdominal pain, melena - Constitutional Constitutional: weight loss (80 pounds in 6 months), no fatigue - EENT Nose, mouth and throat: Absent: dysphagia, sore throat - Cardiovascular Cardiovascular ROS: Absent: chest pain, irregular heart rhythm - Respiratory Respiratory IM: Absent: cough, dyspnea - Neurological ROS Neurological GI: Absent: confusion, headache(s), weakness - Musculoskeletal Musculoskeletal ROS GI: Absent: back pain, joint swelling - Integumentary Integumentary GI: Absent: pruritis, rash - Constitutional Vitals: Temp Pulse Resp BP Pulse Ox 98.1 F 78 16 84/50 97 02/19/19 07:43 02/19/19 07:43 02/19/19 07:43 02/19/19 07:43 02/19/19 07:43 - Head Head exam: Present: atraumatic, normal inspection - Eye Eye exam: Present: EOMI, sclera anicteric. Absent: conjunctival injection - ENT ENT exam: Present: mucous membranes moist, normal oropharynx - Neck Neck exam general surgery: Present: full ROM, trachea midline - Respiratory Respiratory exam: Present: CTAB. Absent: rhonchi, wheezes - Cardiovascular Cardiovascular exam: Present: RRR, +S1, +S2 - GI/Abdominal GI/Abdominal exam: Present: normal bowel sounds, soft. Absent: firm, tenderness - Skin Skin exam: Present: dry, intact Results - Labs CBC & Chem 7: 02/19/19 05:05 02/19/19 05:05 Labs: Last Result 02/18/19 02/19/19 02/19/19 23:27 05:05 05:05 Calcium 8.2 L Troponin I 0.09 H* 0.09 H* Triglycerides 139 Entire Visit 02/19/19 02/19/19 05:05 05:05 Hgb 11.8 D Hct 34.9 L Total Bilirubin 1.4 H AST 30 ALT 13 - ABG ABG results: ABG ABG pH 7.48 pH Units (7.32-7.45) H 02/19/19 04:57 ABG pCO2 48 mmHg (35-45) H 02/19/19 04:57 ABG pO2 77 mmHg (85-104) L 02/19/19 04:57 ABG O2 Saturation 96 % (95-98) 02/19/19 04:57 Consult Discharge Plan - Plan Referrals: Pato Maher MD [Primary Care Provider] - (Appointment has been requested.)
[2019-02-19 12:28] LABS: Hepatitis B Surface Antigen Nonreactive (Nonreactive)
[2019-02-19 12:57] LABS: Hepatitis C Virus Antibody Nonreactive (Nonreactive)
[2019-02-19 13:03] LABS: Hepatitis A Antibody IgM Nonreactive (Nonreactive)
[2019-02-19] MEDS ORDERED: Gadolinium Contrast Agent (WT Based) IV PRN (14:57)
--- NOTE | 2019-02-19 16:09 | Electrocardiograph Report ---
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
--- NOTE | 2019-02-19 16:12 | Electrocardiograph Report ---
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
[2019-02-19] MEDS ORDERED: Potassium Chloride Elixir 20 MEQ/15 ML UDC PO ONE (21:00)
[2019-02-19 22:23] LABS: Basophils % 0.5 %; Eosinophils # 0.3 K/mcL (0.0-0.6); Eosinophils % 8.5 %; Hematocrit 32.1 % (35.3-44.9); Hemoglobin 10.7 g/dL (11.5-15.4); Immature Granulocytes % 0.3 % (0-4); Lymphocytes # 0.8 K/mcL (0.6-4.6); Lymphocytes % 19.3 %; Mean Corpuscular HGB Conc 33.3 g/dL (31.6-35.5); Mean Corpuscular Hemoglobin 31.3 pg (28.0-33.3); Mean Corpuscular Volume 93.9 fL (83.0-100.0); Mean Platelet Volume 10.8 fL (9.4-12.4); Monocytes # 0.3 K/mcL (0.0-1.3); Monocytes % 7.5 %; Neutrophils # 2.5 K/mcL (1.6-8.9); Platelet Count 103 K/mcL (140-400); Red Blood Count 3.42 M/mcL (3.82-4.97); Red Cell Distribution Width 13.7 % (11.5-14.5); Segmented Neutrophils % 63.9 %
[2019-02-19 22:44] LABS: Albumin 2.9 g/dL (3.5-5.7); Bilirubin,Total 1.6 mg/dL (0.3-1.0); Calcium 7.9 mg/dL (8.6-10.3); Potassium 2.8 mEq/L (3.5-5.1); Total Protein 5.9 g/dL (6.4-8.9)
[2019-02-20] MEDS: Ondansetron 4 MG/2 ML VIAL IVP PRN ×2 (00:06→06:24)
[2019-02-20 04:31] LABS: Basophils % 0.6 %; Hemoglobin 9.8 g/dL (11.5-15.4); Immature Granulocytes % 0.3 % (0-4)
[2019-02-20 04:33] LABS: Eosinophils # 0.4 K/mcL (0.0-0.6); Eosinophils % 10.3 %; Hematocrit 30.4 % (35.3-44.9); Immature Platelets 4.3 % (1.1-6.1); Lymphocytes # 0.9 K/mcL (0.6-4.6); Lymphocytes % 24.5 %; Mean Corpuscular HGB Conc 32.2 g/dL (31.6-35.5); Mean Corpuscular Hemoglobin 30.7 pg (28.0-33.3); Mean Corpuscular Volume 95.3 fL (83.0-100.0); Mean Platelet Volume 11.1 fL (9.4-12.4); Monocytes # 0.3 K/mcL (0.0-1.3); Monocytes % 8.6 %; Red Blood Count 3.19 M/mcL (3.82-4.97); Red Cell Distribution Width 13.5 % (11.5-14.5); Segmented Neutrophils % 55.7 %; White Blood Count 3.6 K/mcL (4.3-11.1)
[2019-02-20 04:49] LABS: Calcium 7.8 mg/dL (8.6-10.3); Potassium 3.2 mEq/L (3.5-5.1)
[2019-02-20 04:53] LABS: Platelet Count 89 K/mcL (140-400)
[2019-02-20] MEDS: *HR* Heparin 5,000 UNIT/ML VIAL SQ SCH ×3 (04:56→13:51)
[2019-02-20 05:17] LABS: Platelet Estimate Slight Decrease (Normal)
--- NOTE | 2019-02-20 10:33 | Cardiology Consult Note ---
Date of Encounter: 02/20/19 Time of Encounter: 10:28 Assessment and Plan (1) Pre-operative cardiovascular examination Current Visit: Yes Status: Acute Seen by GI--per notes, want to proceed with EUS for concern of pancreatic mass. Pt has triple vessel CAD with anomalous LCx ([facility] 08/2018)and severe --awaiting CABG and AVR at [facility]. Pt would be high risk from a cardiac standpoint for any procedures or surgery given her CAD and . I discussed at length with pt. She states she would prefer to be transferred to [facility] if any procedures are warranted. Will make GI and hospitalist aware. Anticipate sign off once seen and evaluated by Dr. Pires. (2) Severe aortic stenosis Current Visit: Yes Status: Acute TTE Heavily calcified, bicuspid aortic valve with severely reduced excu rsion. Fusion of the right and left cusps of the aortic valve. Mild-moderate AR. Severe aortic stenosis. Polimety 0.9 cm2. Gradients not well obtained by MISSY; refer to recent TTE 03/05/2019. Very severe aortic stenosis (PV 5.7m/s, MG 82 mmHg, DI 0.16, DONY 0.49cm2). As above, awaiting CABG and AVR at [facility]. (3) CAD (coronary artery disease) Current Visit: Yes Status: Acute [facility] 08/2018 triple vessel CAD. 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 Severe by echo. Awaiting CABG and AVR at [facility]. On BB. ASA allergy listed. Qualifiers: Coronary Disease-Associated Artery/Lesion type: [place] artery [place] vs. transplanted heart: [place] heart Associated angina: without angina Qualified Code(s): I25.10 - Atherosclerotic heart disease of [place] coronary artery without angina pectoris (4) Elevated troponin Current Visit: Yes Status: Acute Troponin 0.09, 0.09, 0.07 in setting of ABIGAIL on admission--dehydration, n/v/d. Likely demand ischemia, nondiagnostic for ACS. Cardiac rehab not warranted. Known triple vessel CAD and severe as above awaiting intervention. Discussion w patient/family: The assessment and plan as outlined above was discussed with the patient and/or family members who expressed understanding and agreement. All questions were answered. Thank you for involving us in the care of your patient. Please call with any questions. I will discuss all the above with Dr. Pires and make changes as necessary. History of Present Illness Consult date: 02/20/19 Consult reason: pre-op risk stratification Chief complaint: n/v/d History of present illness: Ms. Love is a 63 year old female with PMH of CAD and severe awaiting CABG and AVR at [facility] that presents to the ED for nausea and vomiting, ongoing for the past 3 months, progressively worsening. Reports diarrhea at least 8 times a day. Reports nausea and vomiting has become so severe that she is unable to tolerate any oral intake including water thus came to the ED. She denies chest pain. Reports dyspnea and exertional dizziness, denies syncope. Seen by GI, who consulted cardiology for pre-op risk stratification. Pt needs EUS for concern of pancreatic mass. Prior CV testing: [facility] 08/31/18: Triple vessel coronary artery disease. 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 Severe by echo. TTE 08/24/18: LVEF 40-45%. Mild global LV hypokinesis. Mild cLVH. RV was normal in size and systolic function. Heavily calcified, bicuspid aortic valve with severely reduced excursion. Fusion of the right and left cusps of the aortic valve. Mild-moderate AR. Severe aortic stenosis. Polimety 0.9 cm2. Gradients not well obtained by MISSY; refer to recent TTE 03/05/2019. Mild MR. Mild TR. No phtn. Mildly dilated ascending aorta. Ascending aorta (level of right pulmonary artery) 3.98 cm. TTE 03/05/18: LVEF 55%. Grossly there is increased LV wall thickness. Diastolic dysfunction with elevated filling pressures. Normal RV structure and function. Mild-moderate MR. Aortic valve leaflet morphology not well visualized. Densely calcified aortic valve leaflets. Moderate-severe aortic regurgitation. Very severe aortic stenosis (PV 5.7m/s, MG 82 mmHg, DI 0.16, DONY 0.49cm2). Mild TR. Mild MO. Borderline phtn. There is a trivial pericardial effusion present. There is no echocardiographic evidence of tamponade. Past Med Surg Social Fam HX - Past Medical History Medical history: CHF, diabetes, hyperlipidemia, hypertension, valvular heart disease, other Additional medical history: aortic stenosis Psychiatric history: no psych history - Past Surgical History Surgical History: no surgical history - Social History Smoking Status: Never smoker Smokeless Tobacco Status: No Alcohol use: none Drug use: none Medications and Allergies Lactobacillus Combination No.8 [Adult Probiotic] 1 cap PO DAILY 10/18/18 [History] Lipase/Protease/Amylase [Zenpep Dr 5,000 Unit Capsule] 15,000 units PO 5XD 02/18/19 [History] Omeprazole [PriLOSEC] 20 mg PO DAILY 02/18/19 [History] Promethazine HCl 50 mg PO BID PRN 02/18/19 [History] Amylase/Protease/Papain/Papaya [Papaya Enzyme Chewable Tablet] 4 tab PO DAILY 02/19/19 [History] Carvedilol 3.125 mg PO BID 02/19/19 [History] Furosemide [Lasix] 20 mg PO DAILY 02/19/19 [History] Loperamide [Imodium] 2 mg PO AD 02/19/19 [History] Allergy/AdvReac Type Severity Reaction Status Date / Time alcohol AdvReac See Verified 02/19/19 12:05 Comments aspirin AdvReac See Verified 02/19/19 12:05 Comments caffeine AdvReac See Verified 02/19/19 12:05 Comments nicotine AdvReac See Verified 02/19/19 12:05 Comments All Systems Review: The remainder of the systems were reviewed and are negative - Cardiovascular Cardiovascular: as per HPI, dyspnea on exertion, lightheadedness - Respiratory Respiratory: dyspnea - Gastrointestinal Gastrointestinal: diarrhea, nausea Physical Examination Vital Signs, Last 4 Hours Temp Pulse Resp BP Pulse Ox 02/20/19 07:46 98.1 F 77 16 101/54 98 Vital Signs Temp Pulse Resp BP Pulse Ox 02/20/19 07:46 98.1 F 77 16 101/54 98 02/20/19 03:36 98.1 F 73 16 94/61 97 02/19/19 22:54 97.4 F L 71 16 101/63 97 02/19/19 15:36 97.7 F 77 16 93/57 98 02/19/19 11:28 97.7 F 78 16 87/50 95 Intake and Output 02/19/19 02/20/19 02/20/19 23:59 07:59 15:59 Other: Weight 69.6 kg Blood Glucose* 99 115 Patient Weight 02/20/19 23:59 Weight 69.6 kg General: Conversant, No Apparent Distress HEENT: Atraumatic, Normocephaly, Mucus Membranes Moist Neck: No JVD, Normal carotid pulses Cardiac: Other (3/6 murmur) Lungs: Normal Breath Sounds, No Wheeze, Rales, Rhonchi Neuro: Alert and responsive, No focal deficits noted Abdomen: Soft, Non-Tender Skin: No rashes noted on visualized skin Musculoskeletal: No Chest Wall Tenderness Extremities: No Clubbing, No Cyanosis, No Edema, Normal Pulses Results 02/20/19 03:54 02/20/19 03:54 Lab Results 02/19/19 02/19/19 02/19/19 10:48 22:07 22:07 WBC 4.0 L Hgb 10.7 L Hct 32.1 L Plt Count 103 L Sodium 138 Potassium 2.8 L Chloride 98 Carbon Dioxide 32 H BUN 25 H Creatinine 1.24 H Glucose 99 Calcium 7.9 L Total Bilirubin 1.6 H AST 27 ALT 12 Alkaline Phosphatase 72 Troponin I 0.07 H* 02/20/19 02/20/19 03:54 03:54 WBC 3.6 L Hgb 9.8 L Hct 30.4 L Plt Count 89 L Sodium 138 Potassium 3.2 L Chloride 101 Carbon Dioxide 31 H BUN 24 H Creatinine 1.32 H Glucose 136 H Calcium 7.8 L Total Bilirubin AST ALT Alkaline Phosphatase Troponin I Short CBC 02/20/19 02/19/19 Range/Units 03:54 22:07 WBC 3.6 L 4.0 L (4.3-11.1) K/mcL Hgb 9.8 L 10.7 L (11.5-15.4) g/dL Hct 30.4 L 32.1 L (35.3-44.9) % Plt Count 89 L 103 L (140-400) K/mcL Neutrophils # 2.0 2.5 (1.6-8.9) K/mcL BMP 02/20/19 02/19/19 Range/Units 03:54 22:07 Sodium 138 138 (136-145) mEq/L Potassium 3.2 L 2.8 L (3.5-5.1) mEq/L Chloride 101 98 (98-107) mEq/L Carbon Dioxide 31 H 32 H (23-29) mEq/L BUN 24 H 25 H (8-23) mg/dL Creatinine 1.32 H 1.24 H (0.60-1.20) mg/dL Glucose 136 H 99 (70-105) mg/dL Calcium 7.8 L 7.9 L (8.6-10.3) mg/dL Cardiac Enzymes 02/19/19 Range/Units 10:48 Troponin I 0.07 H* (< 0.04) ng/mL Liver Function 02/19/19 Range/Units 22:07 Total Bilirubin 1.6 H (0.3-1.0) mg/dL AST 27 (13-39) Units/L ALT 12 (7-52) Units/L Alkaline Phosphatase 72 (34-104) Units/L Albumin 2.9 L (3.5-5.7) g/dL Impressions Gallbladder Ultrasound 02/19/19 12:30 IMPRESSION: 1. Findings concerning for a hypoechoic 2.6 cm pancreatic head mass with common bile duct and pancreatic duct dilatation concerning for primary pancreatic malignancy. Further evaluation with MRCP/abdomen with and without contrast is recommended. 2. Cholelithiasis and biliary sludge with nonspecific pericholecystic fluid. Acute cholecystitis cannot be excluded. 3. Findings consistent with extensive choledocholithiasis, this will be evaluated with the MRCP component of the abdominal MR exam. 4. Hepatic steatosis. No significant intrahepatic biliary dilatation. D/ / 02/19/2019 13:53:17 Luke Hagen MD / Lyubov Maya Interpreting Provider: Luke Hagen MD Abdomen MRI 02/19/19 14:57 IMPRESSION: 1. Technically suboptimal exam without IV contrast, low GFR. 2. Evidence of pancreatic head mass corresponding to that better delineated on ultrasound earlier today, almost certainly reflecting pancreatic adenocarcinoma. I recommend high-resolution IV contrast-enhanced CT abdomen pancreas protocol for definitive characterization and evaluation of surgical resectability. 3. Dilated gallbladder, common bile duct and pancreatic duct. RECOMMENDATIONS: CT abdomen with IV contrast, pancreas protocol. Note that additional CT imaging without IV contrast will not likely be useful. D/ / Tony Mills / Tony Mills Interpreting Provider: Tony Mills Active Medications Carvedilol (Coreg) 3.125 mg PO BIDWM [facility]; Protocol Stop: 08/21/19 08:01 Last Admin: 02/19/19 19:20 Dose: Not Given Documented by: Dextrose/Water (Dextrose 50% (Syg)) 25 ml IVP AD PRN PRN Reason: Hypoglycemia Stop: 08/20/19 22:43 Gadobutrol (Gadolinium Contrast Agent (Wt Based)) 1 each IV ONCE PRN; Protocol PRN Reason: SEE COMMENTS Stop: 02/21/19 14:58 Glucagon (Glucagen) 1 mg IM ONCE PRN PRN Reason: Hypoglycemia Stop: 08/20/19 22:43 Glucose (Gluctose) 15 gm PO ONCE PRN PRN Reason: Hypoglycemia Stop: 08/20/19 22:43 Glucose (Gluctose) 30 gm PO ONCE PRN PRN Reason: Hypoglycemia Stop: 08/20/19 22:43 Heparin Sodium (Porcine) (Heparin) 5,000 unit SQ Q8HCO [facility] Stop: 08/21/19 06:01 Last Admin: 02/20/19 04:56 Dose: Not Given Documented by: Dextrose (Dextrose 5%) 1,000 mls @ 100 mls/hr IVC .Q10H PRN PRN Reason: HYPOGLYCEMIA Stop: 08/20/19 22:43 Lactobacillus Acidophilus/Rhamnosus (Culturelle) 1 each PO DAILY [facility] Stop: 08/21/19 09:01 Last Admin: 02/19/19 19:21 Dose: Not Given Documented by: Naloxone HCl (Narcan) 0.4 mg IVP Q2MPRN PRN PRN Reason: SEE COMMENTS Stop: 08/20/19 22:43 Omeprazole (Prilosec) 20 mg PO 0630 [facility]; Protocol Stop: 08/21/19 06:31 Last Admin: 02/20/19 04:56 Dose: Not Given Documented by: Ondansetron HCl (Zofran) 4 mg IVP Q8HR PRN PRN Reason: Nausea And Vomiting Stop: 08/20/19 22:43 Last Admin: 02/20/19 06:24 Dose: 4 mg Documented by: Ondansetron HCl (Zofran Odt) 4 mg SL Q8HR PRN PRN Reason: Nausea And Vomiting Stop: 08/20/19 22:43 - Imaging and Cardiology Echo: report reviewed Cardiac cath: report reviewed - EKG Interpretation EKG results cardiology: personally reviewed, other (12 hr tele AVG HR 76, SR) Consult Discharge Plan - Plan Referrals: Pato Maher MD [Primary Care Provider] - (Appointment has been requested.)
--- NOTE | 2019-02-20 10:49 | Internal Med Progress Note ---
Hospitalist Progress Note - Encounter Date of Encounter: 02/20/19 Time of Encounter: 10:48 - Exam Vitals: Temp Pulse Resp BP Pulse Ox 98.1 F 77 16 101/54 98 02/20/19 07:46 02/20/19 07:46 02/20/19 07:46 02/20/19 07:46 02/20/19 07:46 - Time Spent with Patient Total time spent is greater than 50% in coordination of care (as documented) at patient's floor/unit and/or counseling patient: Internal Medicine: Result - Labs CBC & Chem 7: 02/20/19 03:54 02/20/19 03:54 Labs: Short CBC 02/19/19 02/20/19 Range/Units 22:07 03:54 WBC 4.0 L 3.6 L (4.3-11.1) K/mcL Hgb 10.7 L 9.8 L (11.5-15.4) g/dL Hct 32.1 L 30.4 L (35.3-44.9) % Plt Count 103 L 89 L (140-400) K/mcL Neutrophils # 2.5 2.0 (1.6-8.9) K/mcL BMP 02/19/19 02/20/19 22:07 03:54 Sodium 138 138 Potassium 2.8 L 3.2 L Chloride 98 101 Carbon Dioxide 32 H 31 H BUN 25 H 24 H Creatinine 1.24 H 1.32 H Glucose 99 136 H Calcium 7.9 L 7.8 L Cardiac Enzymes 02/19/19 Range/Units 10:48 Troponin I 0.07 H* (< 0.04) ng/mL Liver Function 02/19/19 Range/Units 22:07 Total Bilirubin 1.6 H (0.3-1.0) mg/dL AST 27 (13-39) Units/L ALT 12 (7-52) Units/L Alkaline Phosphatase 72 (34-104) Units/L Albumin 2.9 L (3.5-5.7) g/dL - ABG Interpretation ABG results: ABG ABG pH 7.48 pH Units (7.32-7.45) H 02/19/19 04:57 ABG pCO2 48 mmHg (35-45) H 02/19/19 04:57 ABG pO2 77 mmHg (85-104) L 02/19/19 04:57 ABG O2 Saturation 96 % (95-98) 02/19/19 04:57 - Impressions Impressions Gallbladder Ultrasound 02/19/19 12:30 IMPRESSION: 1. Findings concerning for a hypoechoic 2.6 cm pancreatic head mass with common bile duct and pancreatic duct dilatation concerning for primary pancreatic malignancy. Further evaluation with MRCP/abdomen with and without contrast is recommended. 2. Cholelithiasis and biliary sludge with nonspecific pericholecystic fluid. Acute cholecystitis cannot be excluded. 3. Findings consistent with extensive choledocholithiasis, this will be evaluated with the MRCP component of the abdominal MR exam. 4. Hepatic steatosis. No significant intrahepatic biliary dilatation. D/ / 02/19/2019 13:53:17 Luke Hagen MD / Lyubov Maya Interpreting Provider: Luke Hagen MD Abdomen MRI 02/19/19 14:57 IMPRESSION: 1. Technically suboptimal exam without IV contrast, low GFR. 2. Evidence of pancreatic head mass corresponding to that better delineated on ultrasound earlier today, almost certainly reflecting pancreatic adenocarcinoma. I recommend high-resolution IV contrast-enhanced CT abdomen pancreas protocol for definitive characterization and evaluation of surgical resectability. 3. Dilated gallbladder, common bile duct and pancreatic duct. RECOMMENDATIONS: CT abdomen with IV contrast, pancreas protocol. Note that additional CT imaging without IV contrast will not likely be useful. D/ / Tony Mills / Tony Mills Interpreting Provider: Tony Mills Consult Discharge Plan - Plan Referrals: Pato Maher MD [Primary Care Provider] - (Appointment has been requested.)
[2019-02-20] MEDS ORDERED: Ringers Solution, Lactated 1,000 ML IVC SCH ×2 (11:00→15:43)
[2019-02-20] MEDS ORDERED: Potassium Chloride 40 MEQ, Lidocaine 1% 2 ML in 0.9 % Sodium Chloride 500 ML IVPB ONE (11:10)
[2019-02-20 11:54] VITALS: BP 101/63
[2019-02-20] MEDS: Lactobacillus 1 EACH CAP.SPRINK PO SCH (13:48)
--- NOTE | 2019-02-20 15:38 | Discharge Summary ---
- NOTES TO OUTPATIENT PROVIDER Notes to Outpatient Provider: And transferred to [facility] for further care of her pancreatic mass. Orders not resulted at time of discharge: Pending orders 02/18/19 22:55 Culture,Stool [RM] Routine Fecal Electrolytes Routine Giardia Antigen by EIA,Fecal Routine Pancreatic Elastase, Fecal Routine 02/19/19 07:28 Ova & Parasite Exam Routine 02/19/19 15:13 Cancer Antigen-GI (CA 19-9) Stat Date of Encounter: 02/20/19 Time of Encounter: 15:36 - Discharge Diagnosis (1) Pancreatic mass Priority: Primary Status: Acute (2) CAD (coronary artery disease) Priority: Secondary Status: Acute Qualifiers: Coronary Disease-Associated Artery/Lesion type: [place] artery [place] vs. transplanted heart: [place] heart Associated angina: without angina Qualified Code(s): I25.10 - Atherosclerotic heart disease of [place] coronary artery without angina pectoris (3) Dehydration Priority: Primary Status: Acute (4) Elevated troponin Priority: Primary Status: Acute (5) Hypokalemia Priority: Primary Status: Acute (6) Nausea and vomiting Priority: Primary Status: Acute Qualifiers: Vomiting type: unspecified Vomiting Intractability: non-intractable Qualified Code(s): R11.2 - Nausea with vomiting, unspecified (7) Severe aortic stenosis Priority: Secondary Status: Acute Hospital course: Ms. Love is a 63 year old female with past medical history of severe coronary artery disease and severe aortic stenosis came in due to severe nausea vomiting and diarrhea. Patient recently was treated for C. difficile colitis which she finished treatment for and had resolved. She did not any fever or abdominal pain. Patient recently was diagnosed with pancreaticinsufficiency and was trying different replacement enzymes however it continued. When patient was admitted she had severe hypokalemia with ABIGAIL. ABG showed metabolic alkalosis and compensatory respiratory acidosis. She had mild troponin leak of 0.09 which down trended to 0.07. She was without any chest pain. Patient had mildly elevated lipase at 96. Patient had a gallbladder ultrasound which showed 2.6 cm pancreatic mass with CBD and pancreatic duct dilation, cholelithiasis with some biliary sludge and possible choledocholithiasis. MRCP was obtained which was suboptimal. It demonstrated a pancreatic mass which was almost certainly pancreatic adenocarcinoma but needed IV contrast CT for further delineation and evaluation for surgical resectability, dilated gallbladder, CVA pancreatic duct were noted. Initially there was plan for endoscopy by gastroenterology and cardiology clearance was obtained by them. However she has significant history of severe CAD and severe aortic stenosis which was under evaluation at [facility]. Cardiology recommended transfer to [facility]. Mild troponin elevation not due to ACS per cardiology. After discussion with patient and gastroenterology decision was made to transfer patient to [facility] for further evaluation given her cardiac comorbidities and quicker evaluation of her pancreatic mass. Patient is otherwise stable and her renal function and potassium is improved. Patient without any fevers however has mild leukopenia. Patient would be transfer once medically stable at [facility]. We will keep on clear liquid diet for now and iv Fluids. Discharge discussed with: patient, family, nurse, student union consultant - Time Spent with Patient Total time spent providing and/or coordinating discharge services: Time spent: Greater than 30 minutes (40) - Discharge Medications Prescriptions: Continued Lactobacillus Combination No.8 [Adult Probiotic] 1 cap PO DAILY Omeprazole [PriLOSEC] 20 mg PO DAILY Promethazine HCl 50 mg PO BID PRN PRN Reason: Nausea/ VOMITING Lipase/Protease/Amylase [Zenpep Dr 5,000 Unit Capsule] 15,000 units PO 5XD Amylase/Protease/Papain/Papaya [Papaya Enzyme Chewable Tablet] 4 tab PO DAILY Carvedilol 3.125 mg PO BID Loperamide [Imodium] 2 mg PO AD Discontinued Furosemide [Lasix] 20 mg PO DAILY Home Medications: Lactobacillus Combination No.8 [Adult Probiotic] 1 cap PO DAILY 10/18/18 [History] Lipase/Protease/Amylase [Zenpep Dr 5,000 Unit Capsule] 15,000 units PO 5XD 02/18/19 [History] Omeprazole [PriLOSEC] 20 mg PO DAILY 02/18/19 [History] Promethazine HCl 50 mg PO BID PRN 02/18/19 [History] Amylase/Protease/Papain/Papaya [Papaya Enzyme Chewable Tablet] 4 tab PO DAILY 02/19/19 [History] Carvedilol 3.125 mg PO BID 02/19/19 [History] Loperamide [Imodium] 2 mg PO AD 02/19/19 [History] Allergies/Adverse Reactions: Allergy/AdvReac Type Severity Reaction Status Date / Time alcohol AdvReac See Verified 02/19/19 12:05 Comments aspirin AdvReac See Verified 02/19/19 12:05 Comments caffeine AdvReac See Verified 02/19/19 12:05 Comments nicotine AdvReac See Verified 02/19/19 12:05 Comments Date of admission: 02/18/19 23:52 Primary care physician: Pato Maher MD Consults: 02/18/19 22:45 Consult to Dialysis [CONS] ONCE 02/19/19 06:00 Consult to Gastroenterology [CONS] Routine Consulting Provider: Gastroenterology [place] Reason for Consult: nausea, vomiting unable to tolerate oral Time Notified: 22:49 Call Completed: No 02/19/19 14:53 Consult to Cardiology [CONS] Routine Comment: Consulting Provider: Cardiology B[facility] Reason for Consult: Needs EUS for concerning of pancreatic mass, due to severe needs cardiac clearance Call Completed: No Discharging clinician: Ebony Myrick - Constitutional Vitals: Temp Pulse Resp BP Pulse Ox 98.0 F 76 16 101/63 95 02/20/19 11:53 02/20/19 11:53 02/20/19 11:53 02/20/19 11:53 02/20/19 11:53 Exam: General: In no acute distress. Respiratory exam: CTAB. no accessory muscle use, rales, rhonchi, wheezes Cardiovascular exam: RRR, +S1, +S2. harsh ejection systolic murmur GI/Abdominal exam: Non-tender, Non-distended, normal bowel sounds, soft, no peritoneal signs. Extremities exam: trace pedal edema, pulses palpable in b/l lower extremities. no calf tenderness Neurological exam: CN II-XII intact, AO X3, no focal deficits. Skin exam: No skin rash - Patient Status Disposition: Transfer Hospital Swing Bed Condition: Fair - Discharge Instructions Follow Up With: Pato Maher MD [Primary Care Provider] - 02/22/19 11:30 am ()
[2019-02-21] MEDS ORDERED: [UNRECOGNIZED DRUG - OTHER] PO SCH (09:00)
[2019-02-22 15:24] LABS: Pancreatic Elastase, Fecal 16 ug/g (>=201)
[2019-02-24 09:37] LABS: Ova & Parasite Stain NEGATIVE (Negative)
== END 2019-02-20 17:15 | disposition short-term general hospital (02) | DRG 436 ==
LOC: EMEROOARM 18:23 → 3BNU 18:23 → SUATTDRO 23:52
PROVIDERS: ADMIT Family Medicine; ATTEND Internal Medicine